=== PATIENT | female | born 1990 | race American Indian/Alaskan Native ===

== ENCOUNTER 2018-01-25 21:41 | Emergency (ER) | payer MEDICAID ==
[~2018-01-25] VITALS: Ht 160 cm; Wt 76.2 kg
[~2018-01-25 21:41] MED LIST: HYDR28CR14 TOP; KEN0.1O TP; PENI250T2 PO
[2018-01-25 21:46] VITALS: BP 137/72
[2018-01-25] MEDS ORDERED: TETanus/Pertussis (Acell)/Diphther VAC/PF (Tdap-Adult) 0.5ml syringe IM ONE (21:50)
[2018-01-25] MEDS ORDERED: bacitracin 15gm ointment TP ONE (23:35)
== END 2018-01-25 23:57 | disposition home or self-care (01) ==
LOC: VAS 21:41
DX: S63.8X2A Sprain of other part of left wrist and hand, initial encounter (principal); S81.012A Laceration without foreign body, left knee, initial encounter; Z88.6 Allergy status to analgesic agent; W01.0XXA Fall on same level from slipping, tripping and stumbling without subsequent striking against object, initial encounter; Y93.01 Activity, walking, marching and hiking; Y92.89 Other specified places as the place of occurrence of the external cause; Y99.9 Unspecified external cause status
CPT/HCPCS: 12002; 73564; 90471; 90715; 99284